=== PATIENT | female | born 1975 | race Two or more races ===

== ENCOUNTER 2024-06-09 17:40 | Emergency (ER) | payer OTHER, SELFPAY ==
[~2024-06-09] VITALS: Ht 162.6 cm; Wt 93.8 kg
--- NOTE | 2024-06-09 18:00 | ED.PDOC ---
Musculoskeletal HPI Comments Olmos: HPI: 48 y/o F, presents to the ED for CC of right lower leg swelling. Patient states, that she has PMHX of varicose veins and has been experiencing right lower leg pain with associated swelling x1day. Patient comments on, similar symptoms in the past prior to removal of varicose veins. Patient reports current 6/10 pain. Patient denies chest pain, shortness of breath, numbness, weakness, tingling, limited mobility, or musculoskeletal injury. No other symptoms or modifying factors at this time. Denies any family history or personal history of clotting disorder. Denies any tobacco abuse. Initial Vital Signs: Temp :98.0 BP:146/78 HR: RIGHT DORSAL PALPATION RR:18 SpO2: 98 Past Medical History: VARICOSE VEINS Past Surgical History: VARICOSE VEINS REMOVAL Medications: CONTROL Low-Ogestrel 28 tablet. REVIEW OF SYSTEMS: CONSTITUTIONAL: Denies acute: fever, diaphoresis, chills, generalized weakness. HEAD: Denies acute: headache, photophobia Eyes: Denies acute: Double vision, vision loss, eye pain, eye discharge. EARS: Denies acute: tinnitus, hearing loss, ear discharge, ear pain, THROAT: Denies acute: sore throat, swelling, difficulty swallowing , pain with swallowing, change in voice. NECK: Denies acute: neck pain, neck swelling, stiff neck. HEART: Denies acute : chest pain, palpitations, LUNGS: Denies acute: SOB, wheezing, cough, hemoptysis ABDOMEN: Denies acute: abdominal pain, Nausea, Vomiting, diarrhea, melena , hematemesis, hematochezia SKIN: Denies acute: rash, redness, lesions, itchiness. EXTREMITIES: Denies acute: calf pain, numbness, tingling, weakness, Denies acute: Low back pain. Neuro: Denies acute: focal neurological deficit, motor or sensory focal neurological deficit, tremors, seizure like activity, confusion, dizziness, change in mental status, loss of bowel or bladder function, cauda equina like symptoms. : Denies acute: dysuria, hematuria, flank pain, increase in urinary frequency. PSYCH: Denies acute: hallucination, suicidal ideation, homicidal ideation. FEMALE: Denies acute: abnormal vaginal bleeding, foul odor, unusual discharge. PHYSICAL EXAM: General: no acute distress, awake and alert. Head: normocephalic, atraumatic. Neck: supple, trachea is midline, no swelling. Throat: Normal phonation. Eyes:, no erythema, no purulent discharge, no proptosis, no icterus. Heart: regular rate, regular rhythm, no significant murmur appreciated. Lungs: no apparent respiratory distress, Able to speak in full sentences. No wheezing, no rhonchi, no crackles. No stridors Clear to auscultation bilaterally. Abdomen: non tender to palpation, non distended, soft, no guarding, no rebound, + bowel sounds. Neuro: Awake, Alert, oriented to name, self, situation, follows commands GCS=15. Speech is normal. Skin: no petechia, no purpura, no cyanosis, non-pale, not jaundice. Lower extremities: --no - Pitting edema no deformity, Right lower extremity: Noted presence of varicose veins in the posterior and medial calf region. The area is tender to palpation. Palpable varicose veins. Patient is neurovascularly intact in the affected extremity. Pedal pulses palpable. Sensory and motor are present. Makes eye contact. moves all four extremities. Face: no apparent facial droop. Ambulating in the ED independently. ED COURSE: Chief Complaint: Lower Extremity Time Seen by MD: 17:58 Reviewed Notes: Nurses Notes, Medications, Allergies Allergies: Coded Allergies: No Known Drug Allergy (Verified Allergy, Unknown, 06/09/24) Home Meds Active Scripts Cephalexin Monohydrate (Cephalexin) 500 Mg Tab, 1 TAB PO TID for 7 Days, #21 TAB Prov:SHANICE AMATO 06/09/24 Information Source: Patient Mode of Arrival: Ambulatory Location: Right Extremity Location: Leg Timing: Days Prehospital treatment: None Severity: Moderate Able to Move Extremity: Yes Bear Weight: Fully Pain: Moderate Circumstances: Spontaneous Was a procedure done? Was a procedure done?: No Differential Diagnosis EXT Differential Diagnosis: Cellulitis, CHF, Deep Vein Thrombosis, Compartment Syndrome, Fracture, Sprain, Contusion, Strain, Neurovascular injury Other Differential Diagnosis Hematoma X-Ray, Labs, Meds, VS Vital Signs Date Time Temp Pulse Resp B/P (MAP) Pulse Ox O2 Delivery O2 Flow Rate FiO2 06/09/24 21:52 74 16 97 Room Air* 0 21 06/09/24 21:43 98.0 74 16 128/77 (94) 97 98.0 06/09/24 18:00 98.0 81 18 146/78 (100) 98 Current Medications Medications (Trade) Dose Ordered Sig/Jef Route Start Time Stop Time Status Last Admin Aspirin (Ecotrin Enteric Coated Tablet) 325 mg ONCE ONCE PO 06/09/24 20:45 06/09/24 21:32 DC 06/09/24 21:36 [place] [address] Ph: [phone] DIAGNOSTIC IMAGING Diagnostic Imaging Report : [id number] Signed PATIENT: LORENZO OLMOS ACCT: [id number] UNIT: [id number] : 1975 LOC: ER ROOM / BED: / AGE / SEX: 48 / F ADM STATUS: REG ER SERVICE 1700 ORDERING PHYSICIAN: SHANICE AMATO DO PROCEDURE(s): BLDVT - BiLat Lower DVT REASON: pain ORDER NUMBER(s): [id number], ACCESSION NUMBER(s): [id number] Bilateral lower extremity venous duplex Clinical History: pain Comparison: None Technique: Duplex Doppler evaluation of the deep venous systems of both lower extremities from the common femoral veins to the popliteal veins including color Doppler and spectral/pulsed waveform analysis was performed. Findings: RIGHT SIDE: The common femoral vein demonstrates appropriate compressibility and waveform variability. There is compressibility/patency of the great saphenous vein at the proximal thigh. The femoral vein demonstrates appropriate compressibility and waveform variability. The deep femoral vein demonstrates appropriate compressibility and waveform variability. The popliteal vein demonstrates appropriate compressibility and waveform variability. There is color flow at the tibioperoneal trunk and in the posterior tibial vein. Noncompressible, occluded superficial varicose vein in the right lower extremity (the exact location is not specified by the technologist on the images or on the tech notes). LEFT SIDE: The common femoral vein demonstrates appropriate compressibility and waveform variability. There is compressibility/patency of the great saphenous vein at the proximal thigh. The femoral vein demonstrates appropriate compressibility and waveform variability. The deep femoral vein demonstrates appropriate compressibility and waveform variability. The popliteal vein demonstrates appropriate compressibility and waveform variability. There is color flow at the tibioperoneal trunk and in the posterior tibial vein. Impression: 1. No right or left femoropopliteal venous thrombosis. 2. Occlusive superficial thrombophlebitis of a varicose vein in the right lower extremity. ATED BY: VAISHNAVI THEODORE MD DICTATED DATE/TIME: 06/09/241850 SIGNED BY: VAISHNAVI THEODORE MD SIGNED DATE/TIME: 06/09/241850 CC: Time of 1ST Reevaluation: 18:08 Reevaluation 1ST: Unchanged Patient Education/Counseling: Diagnosis, Treatment Family Education/Counseling: No Family Present Comments Patient presented with the above HPI.--- RIGHT calf varicose veins pain ---workup was initiated. patient was found with the above mentioned diagnosis. the following medications were ordered: please refer to order lists of meds and tests obtained by myself Dr. Amato. Patient ED course and VS have been stabilized. Patient has been reassessed in the ED and remained in a stable condition. Pertinent incidental findings were discussed with the patient and/or family. Patient/family voices understanding and is agreeable with plan. Patient has been observed in the ED adequate length of time to insure improvement/stability. Escalation of care considered: Consideration of escalation to observation or admission Patient was instructed to return here in three days to repeat the ultrasound. Patient was instructed take daily aspirin. Patient was sent home with empiric antibiotics as well. Patient said she will stop her control pills today. Patient was DISCHARGED home in a stable condition. All the reports of any imaging studies that were ordered by myself were reviewed by myself. Departure 1 Departure Time of Disposition: 20:34 Impression: Primary Impression: Superficial thrombophlebitis Additional Impression: Varicose vein of leg Disposition: HOME / SELF CARE / HOMELESS Condition: Stable Additional Instructions: Additional discharge instructions: You MUST follow-up with your primary care/family doctor in 1 to 2 days. If you are unable to see your primary care/family doctor, please return to our e mergency room for re-assessment and re-evaluation in 1 to 2 days. Return to the emergency room here in our facility or to the nearest ER [facility] if your symptoms change or worsen. CONSULTATIONS: you MUST Follow-up for consultation as soon as possible with: --vascular medicine/vascular surgeon in 1-2 days. Please call for appointment. You MUST call the consultants office yourself to make an appointment. You may need to arrange that through your insurance and/or your primary/family doctor. If you are unable to see the [facility] consultant in 1 to 2 days, you must return to our emergency room (or any other ER of your choice) for re-assessment and re- evaluation. Adequate fluid hydration. Take daily full-dose aspirin 325 mg one pill by mouth daily. Return for repeat ultrasound in four days or sooner if symptoms worsen or change. Below is a copy of your radiological report for follow up: [place] [address] Ph: [phone] DIAGNOSTIC IMAGING Diagnostic Imaging Report : [id number] Signed PATIENT: LORENZO OLMOS ACCT: [id number] UNIT: [id number] : 1975 LOC: ER ROOM / BED: / AGE / SEX: 48 / F ADM STATUS: REG ER SERVICE 1700 ORDERING PHYSICIAN: SHANICE AMATO DO PROCEDURE(s): BLDVT - BiLat Lower DVT REASON: pain ORDER NUMBER(s): [id number], ACCESSION NUMBER(s): [id number] Bilateral lower extremity venous duplex Clinical History: pain Comparison: None Technique: Duplex Doppler evaluation of the deep venous systems of both lower extremities from the common femoral veins to the popliteal veins including color Doppler and spectral/pulsed waveform analysis was performed. Findings: RIGHT SIDE: The common femoral vein demonstrates appropriate compressibility and waveform variability. There is compressibility/patency of the great saphenous vein at the proximal thigh. The femoral vein demonstrates appropriate compressibility and waveform variability. The deep femoral vein demonstrates appropriate compressibility and waveform variability. The popliteal vein demonstrates appropriate compressibility and waveform variability. There is color flow at the tibioperoneal trunk and in the posterior tibial vein. Noncompressible, occluded superficial varicose vein in the right lower extremity (the exact location is not specified by the technologist on the images or on the tech notes). LEFT SIDE: The common femoral vein demonstrates appropriate compressibility and waveform variability. There is compressibility/patency of the great saphenous vein at the proximal thigh. The femoral vein demonstrates appropriate compressibility and waveform variability. The deep femoral vein demonstrates appropriate compressibility and waveform variability. The popliteal vein demonstrates appropriate compressibility and waveform variability. There is color flow at the tibioperoneal trunk and in the posterior tibial vein. Impression: 1. No right or left femoropopliteal venous thrombosis. 2. Occlusive superficial thrombophlebitis of a varicose vein in the right lower extremity. ATED BY: VAISHNAVI THEODORE MD DICTATED DATE/TIME: 06/09/241850 SIGNED BY: VAISHNAVI THEODORE MD SIGNED DATE/TIME: 06/09/241850 CC: e-Prescriptions Cephalexin Monohydrate (Cephalexin) 500 Mg Tab 1 TAB PO TID for 7 Days, #21 TAB Prov: SHANICE AMATO DO 06/09/24 Discharged With: Self Critical Care Note Critical Care Time?: No Heart Score Heart Score: Heart Score Response (Comments) Value History N/A 0 EKG N/A 0 Age N/A 0 Risk Factors N/A 0 Troponin N/A 0 Total 0 I personally scribed for SHANIEC AMATO DO ([email or web address]) on 06/09/24 at 17:59. Electronically submitted by Gloria Clark ([email or web address]). I personally scribed for SHANICE AMATO DO ([email or web address]) on 06/09/24 at 18:08. Electronically submitted by Gloria Clark ([email or web address]). I personally scribed for SHANICE AMATO DO ([email or web address]) on 06/09/24 at 18:12. Electronically submitted by Gloria Clark ([email or web address]). I personally scribed for SHANICE AMATO DO ([email or web address]) on 06/09/24 at 20:37. Electronically submitted by Simon Rose ([email or web address]). SHANICE AMATO DO Jun 09, 2024 17:59
--- NOTE | 2024-06-09 18:53 | DVH ---
Bilateral lower extremity venous duplex Clinical History: pain Comparison: None Technique: Duplex Doppler evaluation of the deep venous systems of both lower extremities from the co mmon femoral veins to the popliteal veins including color Doppler and spectral/pulsed waveform analys is was performed. Findings: RIGHT SIDE: The common femoral vein demonstrates appropriate compressibility and waveform variability. There is compressibility/patency of the great saphenous vein at the proximal thigh. The femoral vein demonstrates appropriate compressibility and waveform variability. The deep femoral vein demonstrates appropriate compressibility and waveform variability. The popliteal vein demonstrates appropriate compressibility and waveform variability. There is color flow at the tibioperoneal trunk and in the posterior tibial vein. Noncompressible, occluded superficial varicose vein in the right lower extremity (the exact location is not specified by the technologist on the images or on the tech notes). LEFT SIDE: The common femoral vein demonstrates appropriate compressibility and waveform variability. There is compressibility/patency of the great saphenous vein at the proximal thigh. The femoral vein demonstrates appropriate compressibility and waveform variability. The deep femoral vein demonstrates appropriate compressibility and waveform variability. The popliteal vein demonstrates appropriate compressibility and waveform variability. There is color flow at the tibioperoneal trunk and in the posterior tibial vein. Impression: 1. No right or left femoropopliteal venous thrombosis. 2. Occlusive superficial thrombophlebitis of a varicose vein in the right lower extremity.
[2024-06-09] MEDS ORDERED: CEPH500T PO (20:49)
[2024-06-09] MEDS: ASPirin-EC 325mg tab PO ONE (21:36)
[2024-06-09 21:43] VITALS: BP 128/77; TEMP 98
[2024-06-09 21:52] VITALS: PULSE 74; RESP 16; O2SAT 97
== END 2024-06-09 21:59 | disposition home or self-care (01) ==
LOC: ER 17:40
DX: I80.01 Phlebitis and thrombophlebitis of superficial vessels of right lower extremity (principal); I83.90 Asymptomatic varicose veins of unspecified lower extremity; Z79.82 Long term (current) use of aspirin; Z79.3 Long term (current) use of hormonal contraceptives
CPT/HCPCS: 93970

== ENCOUNTER 2024-06-11 17:48 | Emergency (ER) | payer SELFPAY ==
[~2024-06-11] VITALS: Ht 162.6 cm; Wt 94.8 kg
[~2024-06-11 17:48] MED LIST: CEPH500T PO
--- NOTE | 2024-06-11 19:37 | DVH ---
CLINICAL HISTORY: right leg/calf pain TECHNIQUE: Color and duplex doppler imaging of the right lower extremity veins was performed. Vessel compression if possible was also performed. WID: COMPARISON: US BILAT LOWER DVT on DOS: 06/09/24 FINDINGS: Right common femoral vein: Normal compressibility and flow. Right femoral vein: Normal compressibility and flow. Right popliteal vein: Normal compressibility and flow. Proximal calf veins are normally compressible. In the area of pain in the patient's calf there is a superficial thrombus, acute /subacute appearing which is hypoechoic with echogenic linear strands. IMPRESSION: 1. NO SONOGRAPHIC EVIDENCE FOR DEEP VENOUS THROMBOSIS IN THE RIGHT LOWER EXTREMITY VEINS. 2. Acute/subacute appearing superficial thrombus in a vein in the patient's calf in the area of clini carlos concern
--- NOTE | 2024-06-11 20:03 | ED.PDOC ---
History of Present Illness(SKN HPI Comments 48 year old female presents to ER with complaints of right leg pain x 2 days. Patient with past medical history significant for varicose veins reports that she has been experiencing right lower leg pain/swelling x 2 days. States that she was seen and evaluated in ER here for her symptoms 2 days ago and diagnosed with superficial thrombophlebitis of right leg at that time and states that her pain has got worse x1 day prompting her to come to ER for further evaluation. She states she has been taking aspirin as prescribed. Patient presents to ER ambulatory on arrival, with steady gait, in no distress. Denies shortness of breath, chest pain, history of DVT or any further symptoms/complaints Chief Complaint: Lower Extremity Time Seen by MD: 18:13 Primary Care Provider: UNKNOWN History of Present Illness: Nurses Notes, Medications, Allergies Allergies: Coded Allergies: No Known Drug Allergy (Verified Allergy, Unknown, 06/09/24) Home Meds Active Scripts Cephalexin Monohydrate (Cephalexin) 500 Mg Tab, 1 TAB PO TID for 7 Days, #21 TAB Prov:SHANICE AMATO Terrence TRAN 06/09/24 Information Source: Patient Mode of Arrival: Ambulatory Past Medical History Past Medical History (Other): VARICOSE VEINS Surgical History: Denies all surgeries Family History Family History: Unknown Social History Smoker: Non-Smoker Alcohol: Denies ETOH Use Drugs: Denies Drug Use Lives In: Home Constitutional: denies: chills, diaphoresis, fatigue, fever, malaise, sweats, weakness, others EENTM: denies: blurred vision, double vision, ear bleeding, ear discharge, ear drainage, ear pain, ear ringing, eye pain, eye redness, hearing loss, mouth pain, mouth swelling, nasal discharge, nose bleeding, nose congestion, nose pain, photophobia, tearing, throat pain, throat swelling, voice changes, others Respiratory: denies: cough, hemoptysis, orthopnea, SOB at rest, shortness of breath, SOB with excertion, stridor, wheezing, others Cardiovascular: denies: chest pain, dizzy spells, diaphoresis, Dyspnea on exertion, edema, irregular heart beat, left arm pain, lightheadedness, palpitations, PND, syncope, others Gastrointestinal: denies: abdomen distended, abdominal pain, blood streaked bowels, constipated, diarrhea, dysphagia, difficulty swallowing, hematemesis, melena, nausea, poor appetite, poor fluid intake, rectal bleeding, rectal pain, vomiting, others Genitourinary: denies: abnormal vagina bleeding, burning, dyspareunia, dysuria, flank pain, frequency, hematuria, incontinence, pain, , vagina discharge, urgency, others Neurological: denies: dizziness, fainting, headache, left sided numbness, left sided weakness, numbness, paresthesia, pre-existing deficit, right sided numbness, right sided weakness, seizure, speech problems, tingling, tremors, weakness, others Musculoskeletal: reports: others ( STATED IN HPI) Integumetry: reports: others ( STATED IN HPI) Allergic/Immunocompromised: denies: Difficulty Healing, Frequent Infections, Hives, Itching, others Hematologic/Lymphatic: denies: anemia, blood clots, easy bleeding, easy bruising, swollen glands, others Endocrine: denies: excessive hunger, excessive sweating, excessive thirst, excessive urination, flushing, intolerance to cold, intolerance to heat, unexplained weight gain, unexplained weight loss, others Psychiatric: denies: anxiety, bipolar disorder, depression, hopeless, panic disorder, schizophrenia, sleepless, suicidal, others Physical Exam General Appearance: No Apparent Distress HEENT: PERRL/EOMI Neck: Full Range of Motion, Non-Tender, Normal Respiratory: Chest Non-Tender, Lungs Clear, No Accessory Muscle Use, No Respiratory Distress, Normal Breath Sounds Cardiovascular: No Murmur, No Gallop, Regular Rate/Rhythm Breast Exam: Deferred Gastrointestinal: NOT DONE Genitalia: Deferred Pelvic: Deferred Rectal: Deferred Extremities: Calf tenderness (MILD TENDERNESS NOTED TO VARICOSE VEINS OF RIGHT LOWER CALF. NO ERYTHEMA/FURTHER SKIN CHANGES NOTED. PULSES INTACT. GAIT INTACT WITHOUT ABNORMALITY), Normal capillary refill, Normal range of motion Neurologic: Alert, No Motor Deficits, Normal Affect, Normal Mood, No Sensory Deficits Cerebellar Function: Normal Reflexes: Normal Skin: Dry, Warm Peripheral Pulses: 2+ femoral (R), 2+ femoral (L), 2+ dorsalis pedis (R), 2+ dorsalis pedis (L), 2+ Radial (R), 2+ Radial (L), 2+ Brachial (R), 2+ Brachial (L) Lymphatic: No Adenopathy Was a procedure done? Was a procedure done?: No Sedation Sedation?: No Differential Diagnosis (INTG) Differential Diagnosis: Abrasion Differential Diagnosis: Abscess Differential Diagnosis: Cellulitis, Other (DVT) X-Ray, Labs, Meds, VS Vital Signs Date Time Temp Pulse Resp B/P (MAP) Pulse Ox O2 Delivery O2 Flow Rate FiO2 06/11/24 18:42 97.6 81 18 135/81 (99) 98 PATIENT: PATRICK HOLLANDCT: [id number]: [id number] : 1975 LOC: ER ROOM / BED: / AGE / SEX: 48 / F ADM STATUS: REG ER SERVICE 889 ORDERING PHYSICIAN: QUITA RUSSELL PROCEDURE(s): RLDVT - RT Lower DVT REASON: right leg/calf pain ORDER NUMBER(s): [id number], ACCESSION NUMBER(s): [id number] CLINICAL HISTORY: right leg/calf pain TECHNIQUE: Color and duplex doppler imaging of the right lower extremity veins was performed. Vessel compression if possible was also performed. WID: COMPARISON: US BILAT LOWER DVT on DOS: 06/09/24 FINDINGS: Right common femoral vein: Normal compressibility and flow. Right femoral vein: Normal compressibility and flow. Right popliteal vein: Normal compressibility and flow. Proximal calf veins are normally compressible. In the area of pain in the patient's calf there is a superficial thrombus, acute /subacute appearing which is hypoechoic with echogenic linear strands. IMPRESSION: 1. NO SONOGRAPHIC EVIDENCE FOR DEEP VENOUS THROMBOSIS IN THE RIGHT LOWER EXTREMITY VEINS. 2. Acute/subacute appearing superficial thrombus in a vein in the patient's calf in the area of clinical concern ATED BY: SHREE ZHU MD DICTATED DATE/TIME: 06/11/241933 SIGNED BY: SHREE ZHU MD SIGNED DATE/TIME: 06/11/241933 CC: RIGHT LOWER DVT ULTRASOUND REVIEWED ADVISED TO CONTINUE ASPIRIN PRESCRIBED ADVISED ON REST/NO STRENUOUS ACTIVITY, ELEVATION AND ALTERNATE WARM COMPRESSES ON/OFF ADVISED TO FOLLOW UP IN FOUR DAYS PREVIOUS CHART VISIT REVIEWED PATIENT NEUROVASCULARLY INTACT AND IN NO DISTRESS DURING ER VISIT/PRIOR TO DISCHARGE ADVISED TO FOLLOW UP WITH PCP AND VASCULAR SURGEON IN 1-2 DAYS PATIENT VERBALIZED UNDERSTANDING AND AGREEABLE WITH CURRENT PLAN OF CARE ADVISED TO RETURN TO ER IMMEDIATELY IF SYMPTOMS WORSEN Images Reviewed?: Images reviewed and evaluated by me Time of 1ST Reevaluation: 19:42 Reevaluation 1ST: N/A Patient Education/Counseling: Diagnosis, Treatment, Prognosis, Need For Follow Up Family Education/Counseling: No Family Present Departure 1 Departure Time of Disposition: 20:02 Impression: Primary Impression: Superficial thrombophlebitis Qualified Codes: I80.01 - Phlebitis and thrombophlebitis of superficial vessels of right lower extremity Disposition: 01 HOME / SELF CARE / HOMELESS Condition: Stable Discharged With: Self Critical Care Note Critical Care Time?: No Stability Stability form required: No Heart Score Heart Score: Heart Score Response (Comments) Value History N/A 0 EKG N/A 0 Age N/A 0 Risk Factors N/A 0 Troponin N/A 0 Total 0 QUITA RUSSELL Jun 11, 2024 20:03
[2024-06-11 20:21] VITALS: BP 139/73; PULSE 68; RESP 16; TEMP 98.3; O2SAT 99
== END 2024-06-11 20:18 | disposition home or self-care (01) ==
LOC: ER 17:48
DX: I80.01 Phlebitis and thrombophlebitis of superficial vessels of right lower extremity (principal); Z79.899 Other long term (current) drug therapy
CPT/HCPCS: 93971

== ENCOUNTER 2024-06-14 17:08 | Emergency (ER) | payer BC, SELFPAY ==
[~2024-06-14] VITALS: Ht 162.6 cm; Wt 94.4 kg
--- NOTE | 2024-06-14 18:42 | ED.PDOC ---
Musculoskeletal HPI Comments 48 y/o F, with PMHX of varicose veins presents to the ED for CC of lower extremity pain. Patient states, that she has been experiencing right leg pain with associated swelling x5days. Patient relays, she was seen at [facility] on 06/09/24 for DX:Lower Extremity and 06/11/24 for DX: Right Leg Pain and was told she has a superficial blood clot and was prescribed Aspirin. Patient states, "medications are not helping". Patient denies numbness, weakness, limited range of motion, shortness of breath or injury. No other symptoms or modifying factors at this time. Chief Complaint: Lower Extremity Time Seen by MD: 17:50 Primary Care Provider: UNKNOWN Reviewed Notes: Nurses Notes, Medications, Allergies Allergies: Coded Allergies: No Known Drug Allergy (Verified Allergy, Unknown, 06/09/24) Home Meds Active Scripts Cephalexin Monohydrate (Cephalexin) 500 Mg Tab, 1 TAB PO TID for 7 Days, #21 TAB Prov:SHANICE AMATO Terrence TRAN 06/09/24 Information Source: Patient Mode of Arrival: Ambulatory Location: Left Extremity Location: Leg Timing: Days Prehospital treatment: None Severity: Mild Able to Move Extremity: Yes Bear Weight: Fully Pain: Moderate Mechanism: None Circumstances: Spontaneous Onset of Symptoms: Spontaneous Symptoms: Swelling, Pain DVT Risk Factors: NONE Last Tetanus: Unknown Associated signs and symptoms: Swelling, Leg pain Past Medical History Past Medical History (Other): VERICOUS VEINS Surgical History: Denies all surgeries 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: Denies all 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 PLANT OPERATIONS MANAGER Hx Family History Family History: Unknown Social History Smoker: Non-Smoker Alcohol: Denies ETOH Use Drugs: Denies Drug Use Lives In: Home Constitutional: denies: chills, diaphoresis, fatigue, fever, malaise, sweats, weakness, others EENTM: denies: blurred vision, double vision, ear bleeding, ear discharge, ear drainage, ear pain, ear ringing, eye pain, eye redness, hearing loss, mouth pain, mouth swelling, nasal discharge, nose bleeding, nose congestion, nose pain, photophobia, tearing, throat pain, throat swelling, voice changes, others Respiratory: denies: cough, hemoptysis, orthopnea, SOB at rest, shortness of breath, SOB with excertion, stridor, wheezing, others Cardiovascular: denies: chest pain, dizzy spells, diaphoresis, Dyspnea on ex ertion, edema, irregular heart beat, left arm pain, lightheadedness, palpitations, PND, syncope, others Gastrointestinal: denies: abdomen distended, abdominal pain, blood streaked bowels, constipated, diarrhea, dysphagia, difficulty swallowing, hematemesis, melena, nausea, poor appetite, poor fluid intake, rectal bleeding, rectal pain, vomiting, others Genitourinary: denies: abnormal vagina bleeding, burning, dyspareunia, dysuria, flank pain, frequency, hematuria, incontinence, pain, , vagina discharge, urgency, others Neurological: denies: dizziness, fainting, headache, left sided numbness, left sided weakness, numbness, paresthesia, pre-existing deficit, right sided numbness, right sided weakness, seizure, speech problems, tingling, tremors, weakness, others Musculoskeletal: reports: others (LEFT LEG PAIN); denies: back pain, gout, joint pain, joint swelling, muscle pain, muscle stiffness, neck pain Integumetry: denies: bruises, change in color, change in hair/nails, dryness, laceration, lesions, lumps, rash, wounds, others Allergic/Immunocompromised: denies: Difficulty Healing, Frequent Infections, Hives, Itching, others Hematologic/Lymphatic: denies: anemia, blood clots, easy bleeding, easy bruising, swollen glands, others Endocrine: denies: excessive hunger, excessive sweating, excessive thirst, excessive urination, flushing, intolerance to cold, intolerance to heat, unexplained weight gain, unexplained weight loss, others Psychiatric: denies: anxiety, bipolar disorder, depression, hopeless, panic disorder, schizophrenia, sleepless, suicidal, others All Other Systems: Reviewed and Negative Physical Exam General Appearance: Mild Distress HEENT: Normal ENT Inspection, Pharynx Normal, TMs Normal Neck: Full Range of Motion, Non-Tender, Normal, Normal Inspection Respiratory: Chest Non-Tender, Lungs Clear, No Accessory Muscle Use, No Respiratory Distress, Normal Breath Sounds Cardiovascular: No Edema, No JVD, No Murmur, No Gallop, Normal Peripheral Pulses, Regular Rate/Rhythm Breast Exam: Deferred Gastrointestinal: No Organomegaly, Non Tender, No Pulsatile Mass, Normal Bowel Sounds, Soft Genitalia: Deferred Pelvic: Deferred Rectal: Deferred Extremities: No calf tenderness, Normal capillary refill, No pedal edema Musculoskeletal : Apperance: Normal Neurologic: Alert, cardiology physician II-XII nml as Tested, No Motor Deficits, Normal Affect, Normal Mood, No Sensory Deficits Cerebellar Function: Normal Reflexes: Normal Skin: Dry, Warm, Other (Tenderness with some varicose veins to the right lower extremity) Lymphatic: No Adenopathy Was a procedure done? Was a procedure done?: No Differential Diagnosis EXT Differential Diagnosis: Deep Vein Thrombosis X-Ray, Labs, Meds, VS Vital Signs Date Time Temp Pulse Resp B/P (MAP) Pulse Ox O2 Delivery O2 Flow Rate FiO2 06/14/24 17:30 98.8 72 18 121/73 (89) 100 The patient was being discharged and will continue taking the medications as directed The patient will follow up with the primary care doctor The patient will return to the emergency department's condition worsens. We did review the ultrasound of the right lower extremity. Images Reviewed?: Images reviewed and evaluated by me Time of 1ST Reevaluation: 18:20 Reevaluation 1ST: Unchanged Patient Education/Counseling: Diagnosis, Treatment, Prognosis, Need For Follow Up Family Education/Counseling: No Family Present Departure 1 Departure Time of Disposition: 21:37 Impression: Primary Impression: Superficial thrombophlebitis Qualified Codes: I80.8 - Phlebitis and thrombophlebitis of other sites Disposition: 01 HOME / SELF CARE / HOMELESS Condition: Fair Discharged With: Self Critical Care Note Critical Care Time?: No Stability Stability form required: No Heart Score Heart Score: Heart Score Response (Comments) Value History N/A 0 EKG N/A 0 Age N/A 0 Risk Factors N/A 0 Troponin N/A 0 Total 0 I personally scribed for BRETT RAO MD ([email or web address]) on 06/14/24 at 18:42. Electronically submitted by Gloria Clark ([email or web address]). BRETT RAO MD Jun 14, 2024 18:42
[2024-06-14 21:51] VITALS: BP 120/82; PULSE 77; RESP 20; TEMP 98.4; O2SAT 95
== END 2024-06-14 21:53 | disposition home or self-care (01) ==
LOC: ER 17:08
DX: I82.491 Acute embolism and thrombosis of other specified deep vein of right lower extremity (principal)

== ENCOUNTER → 2024-07-04 | Outpatient (CLI) | payer BC, SELFPAY ==
[2024-07-04 08:07] LABS: Basophils # (auto) 0 10 ^3/uL (0-0.2); Eosinophils # (auto) 0.2 10 ^3/uL (0-0.8); Hemoglobin 12.6 g/dL (12.2-16.2); Lymphocytes # (auto) 1.9 10 ^3/uL (0.4-5.4)
[2024-07-04 08:11] LABS: Basophils % (auto) 0.8 % (0.0-2.0); Eosinophils % (auto) 4.8 % (0.0-7.0); Hematocrit 38.4 % (36.0-46.0); Lymphocytes % (auto) 38.2 % (10.0-50.0); Mean Corpuscular Hgb Conc. 32.9 g/dL (32.0-36.0); Monocytes # (auto) 0.3 10 ^3/uL (0-1.3); Monocytes % (auto) 6.9 % (0.0-12.0); Neutrophils # (auto) 2.4 10 ^3/uL (1.6-8.6); Neutrophils % (auto) 49.3 % (37.0-80.0); Nucleated Red Blood Cells % 0.1 %; Platelet Count (auto) 209 10^3/uL (140-450); Red Blood Cells 4.86 10^6/uL (4.0-5.20); Red Cell Distribution Width 17.4 % (11.8-14.3); White Blood Cell 4.9 10^3/uL (4.4-10.8)
[2024-07-04 08:28] LABS: Alanine Aminotransferase 18 U/L (7-40); Albumin 4.4 g/dL (3.2-4.8); Alkaline Phosphatase 86 U/L (46-116); Anion Gap 12 (5-15); Aspartate Aminotransferase 16 U/L (13-40); BUN/Creatinine Ratio 16.7 (10.0-20.0); Bilirubin, Total 0.9 mg/dL (0.2-1.0); Blood Urea Nitrogen 12 mg/dL (9-23); Carbon Dioxide 26 mmol/L (20-31); Chloride 105 mmol/L (98-107); Cholesterol 202 mg/dL (< 200); Glucose 96 mg/dL (74-106); HDL Cholesterol 94 mg/dL (40-59); LDL Cholesterol 94 mg/dL (< 100); Potassium 3.9 mmol/L (3.5-5.1); Sodium 143 mmol/L (136-145); Total Protein 6.9 g/dL (5.7-8.2); Triglycerides 89 mg/dL (< 150)
== END | disposition home or self-care (01) ==
LOC: LAB 06:27
PROVIDERS: ATTEND Nurse Practitioner Family
DX: I10 Essential (primary) hypertension (principal); Z00.01 Encounter for general adult medical examination with abnormal findings
CPT/HCPCS: 36415; 80053; 80061; 84443; 85025

== ENCOUNTER 2024-09-06 19:35 | Emergency (ER) | payer BC, SELFPAY ==
[~2024-09-06] VITALS: Ht 162.6 cm; Wt 93.7 kg
[2024-09-06 19:45] VITALS: BP 126/78; PULSE 77; RESP 16; TEMP 97.6; O2SAT 96
[2024-09-06 20:29] LABS: Hematocrit 40.9 % (36.0-46.0); Hemoglobin 13.6 g/dL (12.2-16.2); Mean Corpuscular Hemoglobin 27.6 pg (28.0-32.0); Mean Corpuscular Hgb Conc. 33.4 g/dL (32.0-36.0); Mean Corpuscular Volume 82.7 fL (80.0-100.0); Platelet Count (auto) 191 10^3/uL (140-450); Red Blood Cells 4.95 10^6/uL (4.0-5.20); Red Cell Distribution Width 17.4 % (11.8-14.3); White Blood Cell 5.9 10^3/uL (4.4-10.8)
--- NOTE | 2024-09-06 20:38 | ED.PDOC ---
Musculoskeletal HPI Comments HPI: Poor Historian. 49-year-old female presents to emergency department for evaluation of right lower extremity posterior knee fossa pain. Patient has been diagnosed with superficial thrombophlebitis in May of this year. She has been on aspirin daily but stopped two weeks ago in preparation for surgery. Patient has not been able to see a vascular surgeon. Patient presents because her pain as changed location since yesterday in his now with the posterior fossa. Her pain used to be in her right calf. Denies any associated symptoms of chest pain or shortness of breath Vitals: temperature of 97.6F, pulse of 77, respiratory rate of 16, blood pressure of 126/78, SpO2 of 96%RA Past Medical History: Superficial thrombophlebitis Past Surgical History: REVIEW OF SYSTEMS: CONSTITUTIONAL: Denies acute: fever, diaphoresis, chills, generalized weakness. HEAD: Denies acute: headache, photophobia Eyes: Denies acute: Double vision, vision loss, eye pain, eye discharge. EARS: Denies acute: tinnitus, hearing loss, ear discharge, ear pain, THROAT: Denies acute: sore throat, swelling, difficulty swallowing , pain with swallowing, change in voice. NECK: Denies acute: neck pain, neck swelling, stiff neck. HEART: Denies acute : chest pain, palpitations, LUNGS: Denies acute: SOB, wheezing, cough, hemoptysis ABDOMEN: Denies acute: abdominal pain, Nausea, Vomiting, diarrhea, melena , hematemesis, hematochezia SKIN: Denies acute: rash, lesions, itchiness. EXTREMITIES: Denies acute: calf pain, numbness, tingling, weakness, Denies acute: Low back pain. Neuro: Denies acute: focal neurological deficit, motor or sensory focal neurological deficit, tremors, seizure like activity, confusion, dizziness, change in mental status, loss of bowel or bladder function, cauda equina like symptoms. : Denies acute: dysuria, hematuria, flank pain, increase in urinary frequency. PSYCH: Denies acute: hallucination, suicidal ideation, homicidal ideation. FEMALE: Denies acute: abnormal vaginal bleeding, foul odor, unusual discharge. PHYSICAL EXAM: General: ----mild----acute distress, awake and alert. Head: normocephalic, atraumatic. Neck: supple, trachea is midline, no swelling. Throat: Normal phonation. Eyes:, no erythema, no purulent discharge, no proptosis, no icterus. Heart: regular rate, regular rhythm, no significant murmur appreciated. Lungs: no apparent respiratory distress, Able to speak in full sentences. No wheezing, no rhonchi, no crackles. No stridors Clear to auscultation bilaterally. Abdomen: non tender to palpation, non distended, soft, no guarding, no rebound, + bowel sounds. Neuro: Awake, Alert, oriented to name, self, situation, follows commands GCS=15. Speech is normal. Skin: no petechia, no purpura, no cyanosis, non-pale, not jaundice. Lower extremities: --no - Pitting edema no deformity, no focal swelling, no calf TTP. Evaluation of the area of complaint: Right lower extremity posterior fossa tenderness to palpation some minimal right medial thigh redness streaking. Patient was diagnosed with superficial thrombophlebitis in her right mid thigh in May of this year however her pain in the last two days has moved down to her we area. Makes eye contact. moves all four extremities. Face: no apparent facial droop. Ambulating in the ED independently. ED COURSE: Chief Complaint: Lower Extremity Time Seen by MD: 19:50 Primary Care Provider: UNKNOWN Reviewed Notes: Nurses Notes, Allergies Allergies: Coded Allergies: No Known Drug Allergy (Verified Allergy, Unknown, 06/09/24) Home Meds Active Scripts Cephalexin Monohydrate (Cephalexin) 500 Mg Tab, 1 TAB PO TID for 7 Days, #21 TAB Prov:SHANICE AMATO Terrence TRAN 06/09/24 Information Source: Patient Mode of Arrival: Ambulatory Location: Right Past Medical History Surgical History: Denies all surgeries LOGISTICS/SHIPPER History: Denies all LOGISTICS/SHIPPER Hx Family History Family History: Unknown Social History Smoker: Non-Smoker Alcohol: Denies ETOH Use Drugs: Denies Drug Use Lives In: Home Was a procedure done? Was a procedure done?: No Differential Diagnosis EXT Differential Diagnosis: Cellulitis, CHF, Deep Vein Thrombosis, Compartment Syndrome, Fracture, Sprain, Dislocation, Laceration, Gout, DJD, Myocardial Infarction, Contusion, Strain, Rheumatoid, Septic, Hernia, Neurovascular injury, Arthritis, Bursitis X-Ray, Labs, Meds, VS Vital Signs Date Time Temp Pulse Resp B/P (MAP) Pulse Ox O2 Delivery O2 Flow Rate FiO2 09/06/24 19:45 97.6 77 16 126/78 (94) 96 97.6 Lab Test 09/06/24 20:03 Range/Units White Blood Count 5.9 4.4-10.8 10^3/uL Red Blood Count 4.95 4.0-5.20 10^6/uL Hemoglobin 13.6 12.2-16.2 g/dL Hematocrit 40.9 36.0-46.0 % Mean Corpuscular Volume 82.7 80.0-100.0 fL Mean Corpuscular Hemoglobin 27.6 L 28.0-32.0 pg Mean Corpuscular Hemoglobin Concent 33.4 32.0-36.0 g/dL Red Cell Distribution Width 17.4 H 11.8-14.3 % Platelet Count 191 140-450 10^3/uL Mean Platelet Volume 9.1 6.9-10.8 fL Neutrophils (%) (Auto) 37.0-80.0 % Lymphocytes (%) (Auto) 10.0-50.0 % Monocytes (%) (Auto) 0.0-12.0 % Basophils (%) (Auto) 0.0-2.0 % Neutrophils # (Auto) 1.6-8.6 10 ^3/uL Lymphocytes # (Auto) 0.4-5.4 10 ^3/uL Monocytes # (Auto) 0-1.3 10 ^3/uL Differential Total Cells Counted 100.0 100 Neutrophils % (Manual) 67 37.0-80.0 Band Neutrophils % (Manual) 0 Lymphocytes % (Manual) 26 10.0-50.0 Monocytes % (Manual) 5 0-12 Eosinophils % (Manual) 2 0-7 Basophils % (Manual) 0 0.0-2.0 Metamyelocytes % (manual) 0 Myelocytes % (Manual) 0 Promyelocytes % (Manual) 0 Blast Cells % (Manual) 0 Reactive Lymphocytes 0 Platelet Estimate Adequate Prothrombin Time 10.3 9.3-11.8 sec Prothrombin Time INR 0.97 0.9-1.15 Activated Partial Thromboplast Time 28.8 24.5-34.5 SEC [facility] [address] [facility] [address] Ph: [phone] DIAGNOSTIC IMAGING Diagnostic Imaging Report : [id number] Signed PATIENT: LORENZO HOLLAND ACCT: [id number] UNIT: [id number] : 1975 LOC: ER ROOM / BED: / AGE / SEX: 49 / F ADM STATUS: REG ER SERVICE 52 ORDERING PHYSICIAN: SHANICE AMATO DO PROCEDURE(s): RLDVT - RT Lower DVT REASON: pain, ORDER NUMBER(s): [id number], ACCESSION NUMBER(s): [id number] Procedure: US RT Lower DVT Study Date and Requested Time: 09/06/2024 08:56 PM History: pain, Comparison: US RT LOWER DVT on DOS: 06/11/24, US BILAT LOWER DVT on DOS: 06/09/24 Technique: Multiple high resolution rodriguez-scale images with and without compression obtained of the right lower extremity veins, including the common femoral vein, deep femoral vein, proximal mid and distal superficial femoral vein, and popliteal vein. Additional limited images of the greater saphenous vein also obtained. Augmentation performed as indicated. Color and spectral doppler flow images obtained as indicated. Findings: No visible intraluminal venous thrombus. No evidence of incompressibility or abnormal color or spectral Doppler flow visualized in the right lower extremity veins including, the common femoral vein, deep femoral vein, proximal mid and distal superficial femoral vein, and popliteal vein. Greater saphenous vein grossly unremarkable. Thrombus is noted within the right lower extremity calf varicose veins. 5 cm anechoic structure of the right popliteal fossa which may represent a Rodarte cyst. Impression: No sonographic evidence of right lower extremity deep venous thrombosis. Unchanged superficial thrombus within a varicose calf vein. ATED BY: MELISA RENDON DO DICTATED DATE/TIME: 09/06/242136 SIGNED BY: MELISA RENDON DO SIGNED DATE/TIME: 09/06/242136 CC: Time of 1ST Reevaluation: 22:21 Reevaluation 1ST: Unchanged Patient Education/Counseling: Diagnosis, Treatment Family Education/Counseling: No Family Present Comments Patient presented with the above HPI.--leg pain----workup was initiated. patient was found with the above mentioned diagnosis. the following medications were ordered: please refer to order lists of meds and tests obtained by myself Dr. Amato. Patient ED course and VS have been stabilized. Patient has been reassessed in the ED and remained in a stable condition. Pertinent incidental findings were discussed with the patient and/or family. Patient/family voices understanding and is agreeable with plan. Patient has been observed in the ED adequate length of time to insure improvement/stability. Escalation of care considered: Consideration of escalation to observation or admission Patient was DISCHARGED home in a stable condition. All the reports of any imaging studies that were ordered by myself were reviewed by myself. Departure 1 Departure Time of Disposition: 22:22 Impression: Primary Impression: Superficial thrombophlebitis Additional Impression: Bakers cyst Disposition: HOME / SELF CARE / HOMELESS Condition: Stable Additional Instructions: Additional instructions: You MUST follow-up with your primary care/family doctor in 1 to 2 days. If you are unable to see your primary care/family doctor, please return to our emergency room for re-assessment and re-evaluation in 1 to 2 days. Return to the emergency room here in our facility or to the nearest ER [facility] if your symptoms change or worsen. CONSULTATIONS: you MUST Follow-up for consultation as soon as possible with: -vascular medicine/surgeon in 1-2 days. Please call for appointment. You MUST call the consultants office yourself to make an appointment. You may need to arrange that through your insurance and/or your primary/family doctor. If you are unable to see the technical assistance consultant in 1 to 2 days, you must return to our emergency room (or any other ER of your choice) for re-assessment and re- evaluation. Adequate fluid hydration. Continue taking daily aspirin as instructed. If symptoms persist or get worse please repeat extremity ultrasound in 4-5 days. Below is a copy of your radiological report for follow up: [address] [address] Ph: [phone] DIAGNOSTIC IMAGING Diagnostic Imaging Report : [id number] Signed PATIENT: LORENZO HOLLAND ACCT: [id number] UNIT: [id number] : 1975 LOC: ER ROOM / BED: / AGE / SEX: 49 / F ADM STATUS: REG ER SERVICE 52 ORDERING PHYSICIAN: SHANICE AMATO DO PROCEDURE(s): RLDVT - RT Lower DVT REASON: pain, ORDER NUMBER(s): [id number], ACCESSION NUMBER(s): [id number] Procedure: US RT Lower DVT Study Date and Requested Time: 09/06/2024 08:56 PM History: pain, Comparison: US RT LOWER DVT on DOS: 06/11/24, US BILAT LOWER DVT on DOS: 06/09/24 Technique: Multiple high resolution rodriguez-scale images with and without compression obtained of the right lower extremity veins, including the common femoral vein, deep femoral vein, proximal mid and distal superficial femoral vein, and popliteal vein. Additional limited images of the greater saphenous vein also obtained. Augmentation performed as indicated. Color and spectral doppler flow images obtained as indicated. Findings: No visible intraluminal venous thrombus. No evidence of incompressibility or abnormal color or spectral Doppler flow visualized in the right lower extremity veins including, the common femoral vein, deep femoral vein, proximal mid and distal superficial femoral vein, and popliteal vein. Greater saphenous vein grossly unremarkable. Thrombus is noted within the right lower extremity calf varicose veins. 5 cm anechoic structure of the right popliteal fossa which may represent a Rodarte cyst. Impression: No sonographic evidence of right lower extremity deep venous thrombosis. Unchanged superficial thrombus within a varicose calf vein. ATED BY: MELISA RENDON DO DICTATED DATE/TIME: 09/06/242136 SIGNED BY: MELISA RENDON DO SIGNED DATE/TIME: 09/06/242136 CC: Discharged With: Self Critical Care Note Critical Care Time?: No I personally scribed for SHANICE AMATO DO ([email or web address]) on 09/07/24 at 02:50. Electronically submitted by Simon Rose ([email or web address]). SHANICE AMATO DO September 06, 2024 20:38
[2024-09-06 20:51] LABS: Band Neutrophils % (manual) 0; Basophils % (manual) 0 (0.0-2.0); Blast Cells 0; Metamyelocytes % 0; Myelocytes % 0; Promyelocytes % 0; Reactive Lymphocytes 0
[2024-09-06 21:29] LABS: Eosinophils % (manual) 2 (0-7); Lymphocytes % (manual) 26 (10.0-50.0); Monocytes % (manual) 5 (0-12); Platelet Estimate Adequate
--- NOTE | 2024-09-06 21:39 | DVH ---
Procedure: US RT Lower DVT Study Date and Requested Time: 09/06/2024 08:56 PM History: pain, Comparison: US RT LOWER DVT on DOS: 06/11/24, US BILAT LOWER DVT on DOS: 06/09/24 Technique: Multiple high resolution rodriguez-scale images with and without compression obtained of the ri t lower extremity veins, including the common femoral vein, deep femoral vein, proximal mid and dis danielle superficial femoral vein, and popliteal vein. Additional limited images of the greater saphenous vein also obtained. Augmentation performed as indicated. Color and spectral doppler flow images obtai jazz as indicated. Findings: No visible intraluminal venous thrombus. No evidence of incompressibility or abnormal color or spectr al Doppler flow visualized in the right lower extremity veins including, the common femoral vein, marian p femoral vein, proximal mid and distal superficial femoral vein, and popliteal vein. Greater sapheno us vein grossly unremarkable. Thrombus is noted within the right lower extremity calf varicose veins. 5 cm anechoic structure of the right popliteal fossa which may represent a Rodarte cyst. Impression: No sonographic evidence of right lower extremity deep venous thrombosis. Unchanged superficial thrombus within a varicose calf vein.
[2024-09-06 21:43] LABS: INR 0.97 (0.9-1.15); Partial Thromboplastin Time 28.8 SEC (24.5-34.5); Prothrombin Time 10.3 sec (9.3-11.8)
== END 2024-09-06 22:55 | disposition home or self-care (01) ==
LOC: ER 19:35
DX: I80.3 Phlebitis and thrombophlebitis of lower extremities, unspecified (principal); M71.21 Synovial cyst of popliteal space [Baker], right knee; Z79.899 Other long term (current) drug therapy
CPT/HCPCS: 36415; 85007; 85027; 85610; 85730; 93971